=== PATIENT | male | born 1935 | race Caucasian/White ===

== ENCOUNTER 2018-07-18 15:18 | Inpatient (IN) | payer MEDICARE, BC ==
[~2018-07-18] VITALS: Ht 172.7 cm; Wt 84.0 kg
[2018-07-18 16:23] LABS: BASOPHILS % (AUTO) 0.3 % (0-1); EOSINOPHILS % (AUTO) 0.4 % (0-6); HEMOGLOBIN 12.7 g/dl (14.0-17.9); LYMPHOCYTES # (AUTO) 0.9 X10'3 (1.1-4.8); LYMPHOCYTES % (AUTO) 7.4 % (21-51); MEAN CORPUSCULAR HEMOGLOBIN 29.1 PG (27.0-31.0); MEAN CORPUSCULAR HGB CONC 32.6 % (33.0-36.5); MEAN CORPUSCULAR VOLUME 89.3 FL (78-98); MEAN PLATELET VOLUME 8.4 FL (7.4-10.4); MONOCYTES # (AUTO) 1.1 X10'3 (0-0.9); MONOCYTES % (AUTO) 9.2 % (2-12); NEUTROPHILS # (AUTO) 10.3 X10'3 (1.8-7.7); NEUTROPHILS % (AUTO) 82.7 % (42-75); PLATELET COUNT 322 X10'3 (140-440); RED BLOOD COUNT 4.36 X10'6 (4.70-6.10); RED CELL DISTRIBUTION WIDTH 12.6 % (11.5-14.5); WHITE BLOOD COUNT 12.3 X10'3 (4.5-11.0)
[2018-07-18 16:31] LABS: PARTIAL THROMBOPLASTIN TIME 26 SECONDS (22-32)
[2018-07-18 16:36] LABS: ALANINE AMINOTRANSFERASE 57 U/L (12-78); ALBUMIN 2.8 G/DL (3.4-5.0); ALBUMIN/GLOBULIN RATIO 0.6 (1.1-1.5); ALKALINE PHOSPHATASE 96 IU/L (46-116); ANION GAP 11 (8-16); ASPARTATE AMINO TRANSFERASE 51 U/L (10-37); BILIRUBIN,TOTAL 0.8 MG/DL (0.1-1.0); BLOOD UREA NITROGEN 26 MG/DL (7-18); BUN/CREATININE RATIO 13.3 (5.4-32.0); CALCIUM 8.8 MG/DL (8.5-10.1); CHLORIDE 93 MMOL/L (99-107); CREATININE 1.96 MG/DL (0.60-1.10); GLUCOSE 425 MG/DL (70-104); POTASSIUM 4.5 MMOL/L (3.5-5.1); SODIUM 129 MMOL/L (135-145); TOTAL CARBON DIOXIDE 24.8 MMOL/L (24-32); TOTAL PROTEIN 7.2 G/DL (6.4-8.2); eGFR 33 ML/MIN
[2018-07-18 18:01] LABS: CLARITY,URINE CLEAR (Clear); COLOR,URINE YELLOW (Yellow); GLUCOSE, URINE >=1000 mg/dl (Neg); KETONES,URINE TRACE mg/dl (Neg); LEUKOCYTE ESTERASE ,URINE NEGATIVE (Neg); NITRITES, URINE NEGATIVE (Neg); OCCULT BLOOD,URINE TRACE-INTACT (Neg); PH,URINE 5.5 (4.8-8.0); PROTEIN,URINE TRACE mg/dl (Neg); UROBILINOGEN,URINE 0.2 E.U/dL (0.2-1.0)
[2018-07-18 18:02] LABS: UA COLLECTION TYPE CLN CATCH MIDSTREAM
[2018-07-18 18:07] LABS: BACTERIA,URINE FEW /HPF (Neg); MUCUS STRANDS FEW /LPF (Neg); RBC,URINE 0-2 /HPF (0-2); SQUAMOUS EPITHELIAL CELL,UR FEW /LPF (FEW); WBC,URINE 0-4 /HPF (0-4)
[2018-07-18] MEDS ORDERED: CefTRIAXone 2gm/D5W 50ml 50 ML IV ONE (18:30)
[2018-07-18] MEDS ORDERED: vancomycin/NS 1 GM ADD-VANTAGE 250 ML IV ONE (18:30)
[2018-07-18] MEDS ORDERED: ASPI81TA52 PO (19:12)
[2018-07-18] MEDS ORDERED: LANTUS SQ (19:12)
[2018-07-18] MEDS ORDERED: GLIM4TAB PO (19:12)
[2018-07-18] MEDS ORDERED: ATOR80TA PO (19:12)
[2018-07-18] MEDS ORDERED: LIRA0.6P2 SUBCUT (19:12)
[2018-07-18] MEDS ORDERED: potassium Cl 20 mEq SR tablet PO PRN ×2 (19:25)
[2018-07-18] MEDS ORDERED: magnesium 1gm/100ml D5W IVPB 100 ML IV PRN (19:25)
[2018-07-18] MEDS ORDERED: ondansetron/PF 4mg/2ml inj IV PRN (19:25)
[2018-07-18] MEDS ORDERED: MESSAGE TO PHARMACY PO ONE (19:25)
[2018-07-18] MEDS ORDERED: glucagon, human recombinant 1mg kit SUBCUT PRN (19:25)
[2018-07-18] MEDS ORDERED: magnesium 4gm in 100ml NS 100 ML IV PRN (19:25)
[2018-07-18] MEDS ORDERED: mag hydrox/Alum hydrox/simeth 30ml oral suspension PO PRN (19:25)
[2018-07-18] MEDS ORDERED: dextrose ORAL solution 15 GM/59 ML bottle PO PRN ×2 (19:25)
[2018-07-18] MEDS ORDERED: potassium Cl 40MEQ/NS 500ml 500 ML IV PRN ×2 (19:25)
[2018-07-18] MEDS ORDERED: dextrose 50%-water 50ml dispensing syringe IV PRN ×2 (19:25)
[2018-07-18] MEDS ORDERED: morphine 4 MG/ML inj SYRINge IV PRN ×2 (19:25)
[2018-07-18] MEDS: normal saline 1000ml 1,000 ML IV SCH (19:51)
[2018-07-18] MEDS: vancomycin inj 500 MG in normal saline 100ml IV soln 100 ML IV ONE ×2 (20:01→20:42)
[2018-07-18] MEDS ORDERED: insulin Lispro (HumaLOG) vial - multi-dose SQ ONE (20:30)
[2018-07-18] MEDS: insulin glargine (Lantus) pen - multi-dose SQ SCH ×2 (20:46→22:19)
[2018-07-18] MEDS ORDERED: non-formulary drug (Atorvastatin Calcium* (Lipitor*) 1 TABLET) PO SCH (21:00)
[2018-07-18 21:30] VITALS: BP 135/68
[2018-07-18] MEDS: atorvastatin 20mg tablet PO SCH (22:10)
[2018-07-18] MEDS: insulin Lispro (HumaLOG) vial - multi-dose SQ SCH (22:17)
[2018-07-18 23:30] VITALS: BP 112/54
[2018-07-19] MEDS: cefepime 1GM/NS ADD-VANTAGE 100 ML IV SCH ×3 (00:40→16:24)
[2018-07-19 05:21] LABS: BASOPHILS % (AUTO) 0.3 % (0-1); EOSINOPHILS # (AUTO) 0.2 X10'3 (0-0.9); EOSINOPHILS % (AUTO) 1.8 % (0-6); HEMATOCRIT 31.9 % (42.0-52.0); HEMOGLOBIN 10.7 g/dl (14.0-17.9); LYMPHOCYTES # (AUTO) 1.4 X10'3 (1.1-4.8); LYMPHOCYTES % (AUTO) 16.2 % (21-51); MEAN CORPUSCULAR HEMOGLOBIN 29.7 PG (27.0-31.0); MEAN CORPUSCULAR HGB CONC 33.5 % (33.0-36.5); MEAN CORPUSCULAR VOLUME 88.5 FL (78-98); MONOCYTES % (AUTO) 11.4 % (2-12); NEUTROPHILS # (AUTO) 6.2 X10'3 (1.8-7.7); NEUTROPHILS % (AUTO) 70.3 % (42-75); PLATELET COUNT 226 X10'3 (140-440); RED CELL DISTRIBUTION WIDTH 13.3 % (11.5-14.5); WHITE BLOOD COUNT 8.8 X10'3 (4.5-11.0)
[2018-07-19] MEDS: normal saline 1000ml 1,000 ML IV SCH ×3 (05:21→17:35)
[2018-07-19 05:53] LABS: ALANINE AMINOTRANSFERASE 41 U/L (12-78); ALBUMIN 2.2 G/DL (3.4-5.0); ALBUMIN/GLOBULIN RATIO 0.6 (1.1-1.5); ALKALINE PHOSPHATASE 76 IU/L (46-116); ANION GAP 10 (8-16); ASPARTATE AMINO TRANSFERASE 31 U/L (10-37); BILIRUBIN,TOTAL 0.5 MG/DL (0.1-1.0); BLOOD UREA NITROGEN 22 MG/DL (7-18); BUN/CREATININE RATIO 15.5 (5.4-32.0); CALCIUM 8.1 MG/DL (8.5-10.1); CHLORIDE 101 MMOL/L (99-107); CHOL/HDL RATIO 2.4 (0.00-4.99); CHOLESTEROL 88 MG/DL (0-200); CREATININE 1.42 MG/DL (0.60-1.10); GLUCOSE 203 MG/DL (70-104); HDL CHOLESTEROL 37 MG/DL (35-60); LDL CHOLESTEROL 44 MG/DL (50-100); MAGNESIUM 1.9 MG/DL (1.5-2.4); SODIUM 136 MMOL/L (135-145); TOTAL CARBON DIOXIDE 25.3 MMOL/L (24-32); TOTAL PROTEIN 5.8 G/DL (6.4-8.2); TRIGLYCERIDES 78 MG/DL (20-135); eGFR 47 ML/MIN
[2018-07-19 05:56] LABS: HEMOGLOBIN A1C 12.3 % (4.5-6.2)
[2018-07-19 07:00] VITALS: BP 143/71
[2018-07-19] MEDS: enoxaparin 40mg/0.4ml syringe SQ SCH (07:30)
[2018-07-19] MEDS: aspirin 81mg tablet.DR PO SCH (07:30)
[2018-07-19] MEDS: K and/or MAG REPLACEMENT MC SCH (07:32)
[2018-07-19] MEDS ORDERED: vancomycin inj 1,250 MG in normal saline 250ml IV soln 250 ML IV SCH ×2 (08:00→18:00)
[2018-07-19] MEDS: insulin Lispro (HumaLOG) vial - multi-dose SQ SCH ×3 (08:50→18:43)
[2018-07-19 11:00] VITALS: BP 131/59
[2018-07-19 18:30] VITALS: BP 126/67
[2018-07-19] MEDS: vancomycin inj 1,250 MG in normal saline 250ml IV soln 250 ML IV SCH (18:47)
[2018-07-19] MEDS: insulin glargine (Lantus) pen - multi-dose SQ SCH (21:38)
[2018-07-19] MEDS: atorvastatin 20mg tablet PO SCH (21:39)
[2018-07-19] MEDS: lactobacillus rhamnosus 10,000 MMU CELLS/CAPSULE PO SCH (21:39)
[2018-07-20] VITALS: BP 129/65
[2018-07-20] MEDS: cefepime 1GM/NS ADD-VANTAGE 100 ML IV SCH ×4 (01:07→23:40)
[2018-07-20 05:57] LABS: BASOPHILS % (AUTO) 0.4 % (0-1); EOSINOPHILS # (AUTO) 0.2 X10'3 (0-0.9); EOSINOPHILS % (AUTO) 2.9 % (0-6); HEMATOCRIT 31.3 % (42.0-52.0); HEMOGLOBIN 10.5 g/dl (14.0-17.9); LYMPHOCYTES # (AUTO) 1.2 X10'3 (1.1-4.8); LYMPHOCYTES % (AUTO) 15.5 % (21-51); MEAN CORPUSCULAR HEMOGLOBIN 29.5 PG (27.0-31.0); MEAN CORPUSCULAR HGB CONC 33.6 % (33.0-36.5); MEAN PLATELET VOLUME 7.9 FL (7.4-10.4); MONOCYTES # (AUTO) 0.9 X10'3 (0-0.9); MONOCYTES % (AUTO) 11.2 % (2-12); NEUTROPHILS # (AUTO) 5.4 X10'3 (1.8-7.7); PLATELET COUNT 241 X10'3 (140-440); RED BLOOD COUNT 3.56 X10'6 (4.70-6.10); RED CELL DISTRIBUTION WIDTH 13.2 % (11.5-14.5); WHITE BLOOD COUNT 7.7 X10'3 (4.5-11.0)
[2018-07-20 06:30] LABS: ALANINE AMINOTRANSFERASE 34 U/L (12-78); ALBUMIN/GLOBULIN RATIO 0.6 (1.1-1.5); ALKALINE PHOSPHATASE 69 IU/L (46-116); ANION GAP 6 (8-16); ASPARTATE AMINO TRANSFERASE 29 U/L (10-37); BILIRUBIN,TOTAL 0.5 MG/DL (0.1-1.0); BLOOD UREA NITROGEN 18 MG/DL (7-18); CALCIUM 8.2 MG/DL (8.5-10.1); CHLORIDE 105 MMOL/L (99-107); GLUCOSE 172 MG/DL (70-104); MAGNESIUM 1.8 MG/DL (1.5-2.4); POTASSIUM 4.5 MMOL/L (3.5-5.1); SODIUM 136 MMOL/L (135-145); TOTAL CARBON DIOXIDE 24.6 MMOL/L (24-32); TOTAL PROTEIN 5.6 G/DL (6.4-8.2); eGFR 58 ML/MIN
[2018-07-20 08:00] VITALS: BP 123/69
[2018-07-20] MEDS: K and/or MAG REPLACEMENT MC SCH (08:00)
[2018-07-20] MEDS: lactobacillus rhamnosus 10,000 MMU CELLS/CAPSULE PO SCH ×2 (08:37→19:08)
[2018-07-20] MEDS: aspirin 81mg tablet.DR PO SCH (08:37)
[2018-07-20] MEDS: enoxaparin 40mg/0.4ml syringe SQ SCH (08:37)
[2018-07-20] MEDS: insulin Lispro (HumaLOG) vial - multi-dose SQ SCH ×3 (08:43→18:44)
[2018-07-20 12:00] VITALS: BP 129/89
[2018-07-20] MEDS ORDERED: gadopentetate dimeglumine 7.5 MMOL/15 ML syringe ONE (14:36)
[2018-07-20 18:00] VITALS: BP 123/66
[2018-07-20] MEDS: normal saline 1000ml 1,000 ML IV SCH (18:52)
[2018-07-20] MEDS: vancomycin inj 1,250 MG in normal saline 250ml IV soln 250 ML IV SCH (19:04)
[2018-07-20] MEDS: insulin glargine (Lantus) pen - multi-dose SQ SCH (21:13)
[2018-07-20] MEDS: atorvastatin 20mg tablet PO SCH (21:16)
[2018-07-21] VITALS: BP 138/73
[2018-07-21] MEDS: normal saline 1000ml 1,000 ML IV SCH ×2 (04:32→20:35)
[2018-07-21] MEDS: acetaminophen 325mg tablet PO PRN ×2 (05:02→23:21)
[2018-07-21 05:36] LABS: BASOPHILS % (AUTO) 0.5 % (0-1); EOSINOPHILS # (AUTO) 0.2 X10'3 (0-0.9); EOSINOPHILS % (AUTO) 2.5 % (0-6); HEMATOCRIT 34.1 % (42.0-52.0); HEMOGLOBIN 11.6 g/dl (14.0-17.9); LYMPHOCYTES # (AUTO) 1.2 X10'3 (1.1-4.8); LYMPHOCYTES % (AUTO) 13.8 % (21-51); MEAN CORPUSCULAR HEMOGLOBIN 29.8 PG (27.0-31.0); MEAN CORPUSCULAR VOLUME 87.7 FL (78-98); MEAN PLATELET VOLUME 7.7 FL (7.4-10.4); MONOCYTES # (AUTO) 0.9 X10'3 (0-0.9); MONOCYTES % (AUTO) 10.2 % (2-12); NEUTROPHILS # (AUTO) 6.3 X10'3 (1.8-7.7); PLATELET COUNT 286 X10'3 (140-440); RED BLOOD COUNT 3.89 X10'6 (4.70-6.10); RED CELL DISTRIBUTION WIDTH 13.7 % (11.5-14.5); WHITE BLOOD COUNT 8.6 X10'3 (4.5-11.0)
[2018-07-21 06:25] LABS: ALANINE AMINOTRANSFERASE 33 U/L (12-78); ALBUMIN 2.2 G/DL (3.4-5.0); ALBUMIN/GLOBULIN RATIO 0.6 (1.1-1.5); ALKALINE PHOSPHATASE 69 IU/L (46-116); ANION GAP 10 (8-16); ASPARTATE AMINO TRANSFERASE 25 U/L (10-37); BILIRUBIN,TOTAL 0.5 MG/DL (0.1-1.0); BLOOD UREA NITROGEN 16 MG/DL (7-18); BUN/CREATININE RATIO 12.4 (5.4-32.0); CALCIUM 8.5 MG/DL (8.5-10.1); CHLORIDE 103 MMOL/L (99-107); CREATININE 1.29 MG/DL (0.60-1.10); GLUCOSE 135 MG/DL (70-104); MAGNESIUM 1.7 MG/DL (1.5-2.4); POTASSIUM 4.3 MMOL/L (3.5-5.1); SODIUM 138 MMOL/L (135-145); TOTAL CARBON DIOXIDE 25.5 MMOL/L (24-32); eGFR 53 ML/MIN
[2018-07-21] MEDS: cefepime 1GM/NS ADD-VANTAGE 100 ML IV SCH ×3 (07:30→23:23)
[2018-07-21] MEDS: aspirin 81mg tablet.DR PO SCH (07:30)
[2018-07-21] MEDS: lactobacillus rhamnosus 10,000 MMU CELLS/CAPSULE PO SCH ×2 (07:30→20:46)
[2018-07-21] MEDS: K and/or MAG REPLACEMENT MC SCH (07:31)
[2018-07-21] MEDS: enoxaparin 40mg/0.4ml syringe SQ SCH (07:31)
[2018-07-21] MEDS: insulin Lispro (HumaLOG) vial - multi-dose SQ SCH ×3 (08:46→18:23)
[2018-07-21 18:00] VITALS: BP 102/57
[2018-07-21] MEDS: vancomycin inj 1,250 MG in normal saline 250ml IV soln 250 ML IV SCH (18:24)
[2018-07-21] MEDS ORDERED: VANCOMYCIN LEVEL IV ONE (18:30)
[2018-07-21] MEDS: atorvastatin 20mg tablet PO SCH (20:46)
[2018-07-21] MEDS: insulin glargine (Lantus) pen - multi-dose SQ SCH (22:00)
[2018-07-22] VITALS: BP 130/75
[2018-07-22] MEDS: normal saline 1000ml 1,000 ML IV SCH ×2 (05:02→17:14)
[2018-07-22 05:16] LABS: BASOPHILS % (AUTO) 0.6 % (0-1); EOSINOPHILS # (AUTO) 0.2 X10'3 (0-0.9); EOSINOPHILS % (AUTO) 2.9 % (0-6); HEMATOCRIT 32.3 % (42.0-52.0); HEMOGLOBIN 11.2 g/dl (14.0-17.9); LYMPHOCYTES # (AUTO) 1.3 X10'3 (1.1-4.8); LYMPHOCYTES % (AUTO) 18.9 % (21-51); MEAN CORPUSCULAR HEMOGLOBIN 30.1 PG (27.0-31.0); MEAN CORPUSCULAR HGB CONC 34.6 % (33.0-36.5); MEAN CORPUSCULAR VOLUME 86.8 FL (78-98); MEAN PLATELET VOLUME 7.5 FL (7.4-10.4); MONOCYTES # (AUTO) 0.8 X10'3 (0-0.9); MONOCYTES % (AUTO) 11.2 % (2-12); NEUTROPHILS # (AUTO) 4.7 X10'3 (1.8-7.7); NEUTROPHILS % (AUTO) 66.4 % (42-75); PLATELET COUNT 283 X10'3 (140-440); RED BLOOD COUNT 3.73 X10'6 (4.70-6.10); RED CELL DISTRIBUTION WIDTH 12.3 % (11.5-14.5)
[2018-07-22 06:31] LABS: ALANINE AMINOTRANSFERASE 31 U/L (12-78); ALBUMIN 2.2 G/DL (3.4-5.0); ALBUMIN/GLOBULIN RATIO 0.6 (1.1-1.5); ALKALINE PHOSPHATASE 64 IU/L (46-116); ANION GAP 9 (8-16); ASPARTATE AMINO TRANSFERASE 19 U/L (10-37); BILIRUBIN,TOTAL 0.5 MG/DL (0.1-1.0); BLOOD UREA NITROGEN 16 MG/DL (7-18); BUN/CREATININE RATIO 12.1 (5.4-32.0); CALCIUM 8.5 MG/DL (8.5-10.1); CHLORIDE 105 MMOL/L (99-107); CREATININE 1.32 MG/DL (0.60-1.10); GLUCOSE 132 MG/DL (70-104); MAGNESIUM 1.9 MG/DL (1.5-2.4); POTASSIUM 4.7 MMOL/L (3.5-5.1); SODIUM 139 MMOL/L (135-145); TOTAL CARBON DIOXIDE 25.1 MMOL/L (24-32); TOTAL PROTEIN 5.8 G/DL (6.4-8.2); eGFR 52 ML/MIN
[2018-07-22] MEDS: cefepime 1GM/NS ADD-VANTAGE 100 ML IV SCH ×3 (07:47→23:43)
[2018-07-22] MEDS: aspirin 81mg tablet.DR PO SCH (07:47)
[2018-07-22] MEDS: lactobacillus rhamnosus 10,000 MMU CELLS/CAPSULE PO SCH ×2 (07:47→21:36)
[2018-07-22] MEDS: enoxaparin 40mg/0.4ml syringe SQ SCH (07:56)
[2018-07-22] MEDS: K and/or MAG REPLACEMENT MC SCH (07:56)
[2018-07-22] MEDS: insulin Lispro (HumaLOG) vial - multi-dose SQ SCH ×2 (18:32→21:32)
[2018-07-22 18:45] VITALS: BP 120/58
[2018-07-22] MEDS: insulin glargine (Lantus) pen - multi-dose SQ SCH (21:33)
[2018-07-22] MEDS: atorvastatin 20mg tablet PO SCH (21:36)
[2018-07-22] MEDS: docusate sod 100mg capsule PO PRN (21:36)
[2018-07-22] MEDS: acetaminophen 325mg tablet PO PRN (21:36)
[2018-07-22 23:00] VITALS: BP 108/59
[2018-07-23] MEDS: acetaminophen 325mg tablet PO PRN ×2 (04:00→20:55)
[2018-07-23 05:51] LABS: BASOPHILS % (AUTO) 0.5 % (0-1); EOSINOPHILS # (AUTO) 0.2 X10'3 (0-0.9); HEMATOCRIT 32.2 % (42.0-52.0); HEMOGLOBIN 10.8 g/dl (14.0-17.9); LYMPHOCYTES # (AUTO) 1.4 X10'3 (1.1-4.8); LYMPHOCYTES % (AUTO) 19.3 % (21-51); MEAN CORPUSCULAR HEMOGLOBIN 29.8 PG (27.0-31.0); MEAN CORPUSCULAR HGB CONC 33.7 % (33.0-36.5); MEAN CORPUSCULAR VOLUME 88.6 FL (78-98); MEAN PLATELET VOLUME 7.6 FL (7.4-10.4); MONOCYTES # (AUTO) 0.8 X10'3 (0-0.9); MONOCYTES % (AUTO) 11.3 % (2-12); NEUTROPHILS # (AUTO) 4.9 X10'3 (1.8-7.7); NEUTROPHILS % (AUTO) 65.9 % (42-75); PLATELET COUNT 274 X10'3 (140-440); RED BLOOD COUNT 3.63 X10'6 (4.70-6.10); RED CELL DISTRIBUTION WIDTH 12.8 % (11.5-14.5); WHITE BLOOD COUNT 7.3 X10'3 (4.5-11.0)
[2018-07-23 06:04] LABS: ALANINE AMINOTRANSFERASE 30 U/L (12-78); ALBUMIN 2.2 G/DL (3.4-5.0); ALBUMIN/GLOBULIN RATIO 0.6 (1.1-1.5); ALKALINE PHOSPHATASE 67 IU/L (46-116); ANION GAP 8 (8-16); ASPARTATE AMINO TRANSFERASE 29 U/L (10-37); BILIRUBIN,TOTAL 0.5 MG/DL (0.1-1.0); BLOOD UREA NITROGEN 17 MG/DL (7-18); BUN/CREATININE RATIO 13.2 (5.4-32.0); CALCIUM 8.1 MG/DL (8.5-10.1); CHLORIDE 103 MMOL/L (99-107); CREATININE 1.29 MG/DL (0.60-1.10); GLUCOSE 204 MG/DL (70-104); MAGNESIUM 1.7 MG/DL (1.5-2.4); SODIUM 137 MMOL/L (135-145); TOTAL CARBON DIOXIDE 25.6 MMOL/L (24-32); TOTAL PROTEIN 5.8 G/DL (6.4-8.2); eGFR 53 ML/MIN
[2018-07-23 07:50] VITALS: BP 120/78
[2018-07-23] MEDS: K and/or MAG REPLACEMENT MC SCH (08:00)
[2018-07-23] MEDS: lactobacillus rhamnosus 10,000 MMU CELLS/CAPSULE PO SCH ×2 (08:38→20:54)
[2018-07-23] MEDS: enoxaparin 40mg/0.4ml syringe SQ SCH (08:38)
[2018-07-23] MEDS: aspirin 81mg tablet.DR PO SCH (08:38)
[2018-07-23] MEDS: cefepime 1GM/NS ADD-VANTAGE 100 ML IV SCH ×3 (08:38→23:43)
[2018-07-23] MEDS: insulin Lispro (HumaLOG) vial - multi-dose SQ SCH ×3 (08:49→18:42)
[2018-07-23] MEDS: normal saline 1000ml 1,000 ML IV SCH ×2 (10:43→16:21)
[2018-07-23 11:30] VITALS: BP 110/56
[2018-07-23] MEDS: metroNIDAZOLE 500mg tablet PO SCH ×2 (13:12→20:54)
[2018-07-23 18:45] VITALS: BP 129/65
[2018-07-23] MEDS: insulin glargine (Lantus) pen - multi-dose SQ SCH (20:53)
[2018-07-23] MEDS: docusate sod 100mg capsule PO PRN (20:54)
[2018-07-23] MEDS: atorvastatin 20mg tablet PO SCH (20:54)
[2018-07-23 23:00] VITALS: BP_SYST 55
[2018-07-24 05:27] LABS: C-REACTIVE PROTEIN 1.4 MG/DL (0.0-0.5); MAGNESIUM 1.7 MG/DL (1.5-2.4)
[2018-07-24] MEDS: normal saline 1000ml 1,000 ML IV SCH ×2 (05:42→20:25)
[2018-07-24 07:37] VITALS: BP 162/87
[2018-07-24] MEDS: K and/or MAG REPLACEMENT MC SCH (08:00)
[2018-07-24] MEDS: aspirin 81mg tablet.DR PO SCH (08:41)
[2018-07-24] MEDS: cefepime 1GM/NS ADD-VANTAGE 100 ML IV SCH ×3 (08:41→23:54)
[2018-07-24] MEDS: lactobacillus rhamnosus 10,000 MMU CELLS/CAPSULE PO SCH ×2 (08:41→20:30)
[2018-07-24] MEDS: enoxaparin 40mg/0.4ml syringe SQ SCH (08:42)
[2018-07-24] MEDS: metroNIDAZOLE 500mg tablet PO SCH ×3 (08:42→20:30)
[2018-07-24] MEDS: insulin Lispro (HumaLOG) vial - multi-dose SQ SCH ×3 (08:49→18:40)
[2018-07-24] MEDS ORDERED: lactulose 20gm/30ml cup PO ONE (11:25)
[2018-07-24 12:33] VITALS: BP 130/72
[2018-07-24 12:39] LABS: BASOPHILS # (AUTO) 0.1 X10'3 (0-0.2); BASOPHILS % (AUTO) 1.6 % (0-1); EOSINOPHILS # (AUTO) 0.2 X10'3 (0-0.9); EOSINOPHILS % (AUTO) 2.4 % (0-6); HEMATOCRIT 34.8 % (42.0-52.0); HEMOGLOBIN 11.8 g/dl (14.0-17.9); LYMPHOCYTES # (AUTO) 1.5 X10'3 (1.1-4.8); MEAN CORPUSCULAR HEMOGLOBIN 29.9 PG (27.0-31.0); MEAN CORPUSCULAR HGB CONC 33.9 % (33.0-36.5); MEAN CORPUSCULAR VOLUME 88.2 FL (78-98); MEAN PLATELET VOLUME 7.4 FL (7.4-10.4); MONOCYTES # (AUTO) 0.9 X10'3 (0-0.9); MONOCYTES % (AUTO) 10.6 % (2-12); NEUTROPHILS # (AUTO) 5.9 X10'3 (1.8-7.7); NEUTROPHILS % (AUTO) 68.4 % (42-75); PLATELET COUNT 311 X10'3 (140-440); RED BLOOD COUNT 3.94 X10'6 (4.70-6.10); RED CELL DISTRIBUTION WIDTH 13.6 % (11.5-14.5); WHITE BLOOD COUNT 8.6 X10'3 (4.5-11.0)
[2018-07-24 12:58] LABS: ALBUMIN 2.6 G/DL (3.4-5.0); ANION GAP 8 (8-16); BLOOD UREA NITROGEN 18 MG/DL (7-18); BUN/CREATININE RATIO 13.2 (5.4-32.0); CALCIUM 8.7 MG/DL (8.5-10.1); CHLORIDE 103 MMOL/L (99-107); CREATININE 1.36 MG/DL (0.60-1.10); GLUCOSE 141 MG/DL (70-104); POTASSIUM 4.1 MMOL/L (3.5-5.1); SODIUM 137 MMOL/L (135-145); TOTAL CARBON DIOXIDE 25.9 MMOL/L (24-32); eGFR 50 ML/MIN
[2018-07-24 20:00] VITALS: BP 146/87
[2018-07-24] MEDS: atorvastatin 20mg tablet PO SCH (20:31)
[2018-07-24] MEDS: insulin glargine (Lantus) pen - multi-dose SQ SCH (20:33)
[2018-07-25] VITALS (15 sets, daily range): BP systolic 90–154; BP diastolic 51–87
[2018-07-25 05:25] LABS: BASOPHILS % (AUTO) 0.7 % (0-1); EOSINOPHILS # (AUTO) 0.3 X10'3 (0-0.9); EOSINOPHILS % (AUTO) 4.2 % (0-6); LYMPHOCYTES # (AUTO) 1.3 X10'3 (1.1-4.8); LYMPHOCYTES % (AUTO) 19.5 % (21-51); MEAN CORPUSCULAR HEMOGLOBIN 29.6 PG (27.0-31.0); MEAN CORPUSCULAR HGB CONC 33.9 % (33.0-36.5); MEAN CORPUSCULAR VOLUME 87.2 FL (78-98); MEAN PLATELET VOLUME 7.6 FL (7.4-10.4); MONOCYTES # (AUTO) 0.7 X10'3 (0-0.9); MONOCYTES % (AUTO) 10.8 % (2-12); NEUTROPHILS # (AUTO) 4.5 X10'3 (1.8-7.7); NEUTROPHILS % (AUTO) 64.8 % (42-75); PRE OP HEMATOCRIT 32.7 % (42.0-52.0); PRE OP HEMOGLOBIN 11.1 g/dL (14.0-17.9); PRE OP PLATELET COUNT 250 X10'3 (140-440); RED BLOOD COUNT 3.75 X10'6 (4.70-6.10); RED CELL DISTRIBUTION WIDTH 13.5 % (11.5-14.5)
[2018-07-25 05:55] LABS: PRE OP PROTIME 10.8 SECONDS (9.0-12.0)
[2018-07-25 06:11] LABS: ALBUMIN 2.4 G/DL (3.4-5.0); ALBUMIN/GLOBULIN RATIO 0.7 (1.1-1.5); ALKALINE PHOSPHATASE 76 IU/L (46-116); BLOOD UREA NITROGEN 19 MG/DL (7-18); BUN/CREATININE RATIO 14.3 (5.4-32.0); CALCIUM 8.3 MG/DL (8.5-10.1); CHLORIDE 105 MMOL/L (99-107); CREATININE 1.33 MG/DL (0.60-1.10); MAGNESIUM 1.7 MG/DL (1.5-2.4); PRE OP ALT 45 U/L (30-65); PRE OP ANION GAP 8 (8-16); PRE OP AST 49 U/L (10-37); PRE OP BILIRUB, TOTAL 0.5 MG/DL (0.0-1.0); PRE OP GLUCOSE 179 MG/DL (70-104); PRE OP POTASSIUM 3.9 MMOL/L (3.4-5.1); PRE OP SODIUM 138 MMOL/L (135-145); TOTAL CARBON DIOXIDE 24.8 MMOL/L (24-32); eGFR 51 ML/MIN
[2018-07-25] MEDS: enoxaparin 40mg/0.4ml syringe SQ SCH (08:00)
[2018-07-25] MEDS: aspirin 81mg tablet.DR PO SCH (08:00)
[2018-07-25] MEDS: K and/or MAG REPLACEMENT MC SCH (08:00)
[2018-07-25] MEDS: lactobacillus rhamnosus 10,000 MMU CELLS/CAPSULE PO SCH ×3 (08:00→21:10)
[2018-07-25] MEDS: metroNIDAZOLE 500mg tablet PO SCH ×4 (08:00→21:10)
[2018-07-25] MEDS: cefepime 1GM/NS ADD-VANTAGE 100 ML IV SCH ×2 (08:07→16:58)
[2018-07-25] MEDS: insulin Lispro (HumaLOG) vial - multi-dose SQ SCH ×2 (09:34→21:36)
[2018-07-25] MEDS: acetaminophen 325mg tablet PO PRN ×2 (12:23→21:15)
[2018-07-25] MEDS: normal saline 1000ml 1,000 ML IV SCH (12:26)
[2018-07-25] MEDS ORDERED: ringers solution, lacted 1,000 ML IV SCH (13:56)
[2018-07-25] MEDS ORDERED: morphine 4 MG/ML inj SYRINge IV PRN ×2 (14:00)
[2018-07-25] MEDS ORDERED: ondansetron/PF 4mg/2ml inj IV PRN (14:00)
[2018-07-25] MEDS ORDERED: meperidine/PF 25mg/ml syringe IV PRN ×3 (14:00)
[2018-07-25] MEDS ORDERED: proCHLORperazine 10 MG/2 ml inj IV PRN (14:00)
[2018-07-25] MEDS ORDERED: fentaNYL/PF 50MCG/1 ML 2ML syringe ONE (14:02)
[2018-07-25] MEDS ORDERED: sevoflurane 250ml liquid IH ONE (14:02)
[2018-07-25] MEDS ORDERED: epiNEPHrine 0.1mg/ml 10ml syringe ONE (14:02)
[2018-07-25] MEDS ORDERED: ceFAZolin 1000mg inj ONE ×2 (14:14)
[2018-07-25] MEDS ORDERED: propofol inj 20 ML IV ONE (14:15)
[2018-07-25] MEDS ORDERED: VANCOMYCIN LEVEL IV ONE (15:30)
[2018-07-25] MEDS: atorvastatin 20mg tablet PO SCH (21:11)
[2018-07-25] MEDS: insulin glargine (Lantus) pen - multi-dose SQ SCH (21:35)
[2018-07-26] VITALS: BP 115/64
[2018-07-26] MEDS: cefepime 1GM/NS ADD-VANTAGE 100 ML IV SCH ×4 (00:26→23:24)
[2018-07-26] MEDS: normal saline 1000ml 1,000 ML IV SCH ×2 (02:13→15:34)
[2018-07-26 04:30] VITALS: BP 104/69
[2018-07-26 06:52] VITALS: BP 137/79
[2018-07-26] MEDS: K and/or MAG REPLACEMENT MC SCH (08:00)
[2018-07-26] MEDS: insulin Lispro (HumaLOG) vial - multi-dose SQ SCH ×3 (08:11→19:41)
[2018-07-26] MEDS: metroNIDAZOLE 500mg tablet PO SCH ×3 (08:14→21:32)
[2018-07-26] MEDS: enoxaparin 40mg/0.4ml syringe SQ SCH (08:14)
[2018-07-26] MEDS: aspirin 81mg tablet.DR PO SCH (08:14)
[2018-07-26] MEDS: lactobacillus rhamnosus 10,000 MMU CELLS/CAPSULE PO SCH ×2 (08:14→19:41)
[2018-07-26 11:04] VITALS: BP 115/53
[2018-07-26] MEDS: acetaminophen 325mg tablet PO PRN ×2 (11:31→23:29)
[2018-07-26] MEDS ORDERED: VANCOMYCIN LEVEL IV ONE (15:30)
[2018-07-26 18:00] VITALS: BP 133/77
[2018-07-26] MEDS: atorvastatin 20mg tablet PO SCH (21:32)
[2018-07-26] MEDS: insulin glargine (Lantus) pen - multi-dose SQ SCH (21:35)
[2018-07-26] MEDS ORDERED: temazepam 15mg capsule PO PRN (23:50)
[2018-07-27] VITALS: BP 139/78
[2018-07-27] MEDS ORDERED: cloNIDine 0.1 mg tablet PO ONE (06:50)
[2018-07-27 07:10] VITALS: BP_SYST 181; BP_SYST 186; BP_DIAS 106; BP_DIAS 99
[2018-07-27] MEDS: K and/or MAG REPLACEMENT MC SCH (08:00)
[2018-07-27] MEDS: insulin Lispro (HumaLOG) vial - multi-dose SQ SCH ×2 (08:01→12:57)
[2018-07-27] MEDS: cefepime 1GM/NS ADD-VANTAGE 100 ML IV SCH ×2 (08:02→16:00)
[2018-07-27] MEDS: enoxaparin 40mg/0.4ml syringe SQ SCH (08:02)
[2018-07-27] MEDS: lactobacillus rhamnosus 10,000 MMU CELLS/CAPSULE PO SCH (08:02)
[2018-07-27] MEDS: metroNIDAZOLE 500mg tablet PO SCH ×2 (08:02→12:57)
[2018-07-27] MEDS: aspirin 81mg tablet.DR PO SCH (08:02)
[2018-07-27 08:21] VITALS: BP 88/42
[2018-07-27] MEDS ORDERED: normal saline 500ml IV soln 1,000 ML IV ONE (09:35)
[2018-07-27] MEDS ORDERED: normal saline 1000ml 1,000 ML IV SCH (09:35)
[2018-07-27 11:44] VITALS: BP 130/77
== END 2018-07-27 17:05 | DRG 872 ==
LOC: ER 15:19 → ED HOLD 19:21 → SUR 3N 21:20 → PACU 07-25 13:00 → SUR 3N 07-25 16:56
PROVIDERS: ADMIT Family Medicine; ATTEND Internal Medicine
PROC: BQ3LYZZ Magnetic Resonance Imaging (MRI) of Right Foot using Other Contrast (ICD-10-PCS; 2018-07-20)
PROC: 02HV33Z Insertion of Infusion Device into Superior Vena Cava, Percutaneous Approach (ICD-10-PCS; 2018-07-23)
PROC: B548ZZA Ultrasonography of Superior Vena Cava, Guidance (ICD-10-PCS; 2018-07-23)
PROC: 0H9MX0Z Drainage of Right Foot Skin with Drainage Device, External Approach (ICD-10-PCS; principal; 2018-07-25 14:02)
DX: A41.9 Sepsis, unspecified organism (principal); L03.115 Cellulitis of right lower limb; E87.1 Hypo-osmolality and hyponatremia; E44.1 Mild protein-calorie malnutrition; L02.611 Cutaneous abscess of right foot; M86.8X7 Other osteomyelitis, ankle and foot; N17.9 Acute kidney failure, unspecified; I25.10 Atherosclerotic heart disease of native coronary artery without angina pectoris; N18.3 Chronic kidney disease, stage 3 (moderate); E86.0 Dehydration; Z68.28 Body mass index [BMI] 28.0-28.9, adult; E11.22 Type 2 diabetes mellitus with diabetic chronic kidney disease; E11.621 Type 2 diabetes mellitus with foot ulcer; E11.65 Type 2 diabetes mellitus with hyperglycemia; E11.69 Type 2 diabetes mellitus with other specified complication; E78.00 Pure hypercholesterolemia, unspecified; E78.5 Hyperlipidemia, unspecified; Z96.653 Presence of artificial knee joint, bilateral; I12.9 Hypertensive chronic kidney disease with stage 1 through stage 4 chronic kidney disease, or unspecified chronic kidney disease; L97.519 Non-pressure chronic ulcer of other part of right foot with unspecified severity; Z95.5 Presence of coronary angioplasty implant and graft; Z79.899 Other long term (current) drug therapy; Z79.82 Long term (current) use of aspirin; Z79.4 Long term (current) use of insulin; Z80.9 Family history of malignant neoplasm, unspecified
CPT/HCPCS: 36415; 36569; 71045; 73630; 73720; 76937; 80048; 80053; 80061; 80202; 81001; 82948; 83036; 83605; 83735; 84145; 85025; 85610; 85651; 85730; 86140; 87040; 87070; 87075; 87077; 87186; 93922; 93925; 96365; 96368; 97116; 97161; 97530; 99285; A4649; A6196; A6212; A6213; A6222; A6266; A6446; A6449; A7000; A9579; J0171; J0690; J0692; J0696; J1650; J1815; J2704; J3010; J3370; J3490; J7030; J7120

== ENCOUNTER 2018-09-15 15:33 | Emergency (ER) | payer MEDICARE, BC ==
[~2018-09-15] VITALS: Ht 175.3 cm; Wt 79.0 kg
[~2018-09-15 15:33] MED LIST: ASPI81TA52 PO; GLIM4TAB PO; LANTUS SQ; LIRA0.6P2 SUBCUT
[2018-09-15 15:58] LABS: BASOPHILS # (AUTO) 0.1 X10'3 (0-0.2); BASOPHILS % (AUTO) 0.7 % (0-1); EOSINOPHILS # (AUTO) 0.1 X10'3 (0-0.9); HEMATOCRIT 35.2 % (42.0-52.0); HEMOGLOBIN 11.8 g/dl (14.0-17.9); LYMPHOCYTES # (AUTO) 0.8 X10'3 (1.1-4.8); LYMPHOCYTES % (AUTO) 11.7 % (21-51); MEAN CORPUSCULAR HEMOGLOBIN 29.4 PG (27.0-31.0); MEAN CORPUSCULAR HGB CONC 33.4 % (33.0-36.5); MEAN PLATELET VOLUME 7.8 FL (7.4-10.4); MONOCYTES # (AUTO) 0.8 X10'3 (0-0.9); MONOCYTES % (AUTO) 11.1 % (2-12); NEUTROPHILS # (AUTO) 5.4 X10'3 (1.8-7.7); NEUTROPHILS % (AUTO) 75.5 % (42-75); PLATELET COUNT 209 X10'3 (140-440); RED CELL DISTRIBUTION WIDTH 14.8 % (11.5-14.5); WHITE BLOOD COUNT 7.2 X10'3 (4.5-11.0)
[2018-09-15 16:11] LABS: ALANINE AMINOTRANSFERASE 45 U/L (12-78); ALBUMIN 3.1 G/DL (3.4-5.0); ALKALINE PHOSPHATASE 53 IU/L (46-116); ANION GAP 10 (8-16); ASPARTATE AMINO TRANSFERASE 64 U/L (10-37); BILIRUBIN,TOTAL 0.3 MG/DL (0.1-1.0); BLOOD UREA NITROGEN 31 MG/DL (7-18); BUN/CREATININE RATIO 21.7 (5.4-32.0); CALCIUM 8.4 MG/DL (8.5-10.1); CHLORIDE 106 MMOL/L (99-107); CREATININE 1.43 MG/DL (0.60-1.10); GLUCOSE 142 MG/DL (70-104); PHOSPHORUS 4.6 MG/DL (2.3-4.5); POTASSIUM 4.4 MMOL/L (3.5-5.1); SODIUM 141 MMOL/L (135-145); TOTAL CARBON DIOXIDE 24.7 MMOL/L (24-32); TOTAL PROTEIN 6.3 G/DL (6.4-8.2); eGFR 47 ML/MIN
[2018-09-15 16:50] VITALS: BP 154/92
== END 2018-09-15 16:51 | disposition home or self-care (01) ==
LOC: ER 15:33
DX: E11.649 Type 2 diabetes mellitus with hypoglycemia without coma (principal); I25.10 Atherosclerotic heart disease of native coronary artery without angina pectoris; E78.00 Pure hypercholesterolemia, unspecified; I10 Essential (primary) hypertension; Z98.61 Coronary angioplasty status; Z79.82 Long term (current) use of aspirin; Z79.4 Long term (current) use of insulin; Z79.899 Other long term (current) drug therapy
CPT/HCPCS: 36415; 80053; 82948; 83735; 84100; 85025; 99284